=== PATIENT | female | born 1955 | race Hispanic/Latino ===

== ENCOUNTER 2017-01-29 03:36 | Emergency (ER) | payer BC ==
[2017-01-29 04:01] LABS: Bilirubin Negative (Negative); Blood, Urine Trace (Negative); Clarity Slightly Cloudy (Clear); Glucose, Urine (Dipstick) Negative (Negative); Leukocyte Small (Negative); Nitrite Negative (Negative); Protein, Urine (Dipstick) Negative (Neg-Trace); Urobilinogen 0.2 mg/dL (0.2-1.0); pH, Urine 5.5 (5.0-9.0)
[2017-01-29 04:08] LABS: Bacteria/HPF 2+ HPF (None Seen); Transitional Epithelial 0-3 HPF (0-3)
[2017-01-29] MEDS ORDERED: Ketorolac Tromethamine 30 MG/ML VIAL ONE (04:18)
[2017-01-29] MEDS ORDERED: Ondansetron HCl/PF 4 MG/2 ML Vial ONE (04:18)
[2017-01-29 04:28] LABS: #Basophils 0.1 thou/uL (0.0-0.2); #Eosinphils 0.1 thou/uL (0.0-0.7); #Lymphocytes 2.2 thou/uL (1.20-3.40); #Monocytes 0.8 thou/uL (0.11-0.59); #Neutrophils 5.2 thou/uL (1.40-6.50); %Basophils 1.3 % (0.0-1.0); %Eosinophils 1.6 % (0.0-10.0); %Monocytes 9.7 % (0.0-10.0); %Neutrophils 61.5 % (42.0-75.0); Mean Corpuscular HGB CONC 33.1 g/dL (32.0-36.0); Mean Corpuscular Hemoglobin 30.4 pg (27.0-31.0); Mean Corpuscular Volume 91.6 fl (81.0-99.0); Mean Platelet Volume 6.9 fL (7.4-10.4); Platelet Count 346 thou/uL (130-400); Red Blood Cell (RBC) Count 4.61 mill/uL (4.20-5.40); White Blood Cell (WBC) Count 8.4 thou/uL (4.8-10.8)
[2017-01-29 04:44] LABS: ALT (SGPT) 16 U/L (8-55); AST (SGOT) 18 U/L (5-34); Alkaline Phosphatase 86 U/L (40-150); Anion Gap 16 mmol/L (10-20); BUN (Urea Nitrogen) 16 mg/dL (9.8-20.1); Bilirubin, Total 0.3 mg/dL (0.2-1.2); Calc. Creatinine Clearance 0 mL/min (70-130); Calcium 9.4 mg/dL (7.8-10.44); Carbon Dioxide 24 mmol/L (23-31); Chloride 104 mmol/L (98-107); Estimated GFR-MDRD 82; Glucose 135 mg/dL (80-115); Sodium 140 mmol/L (136-145)
[2017-01-29] MEDS ORDERED: Morphine 4 MG/ML Carpuject ONE (04:59)
[2017-01-29] MEDS ORDERED: methylPREDNISolone Sod Succ/PF 125 MG/2 ML VIAL ONE (05:06)
[2017-01-29] MEDS ORDERED: Sulfameth/Trimethoprim DS 800-160mg TAB ONE (05:06)
--- NOTE | 2017-01-29 08:07 | CT ---
PRELIMINARY REPORT/[facility]/EMERGENCY AFTER HOURS PROCEDURE: EXAM: CT Abdomen and Pelvis Without Intravenous Contrast CLINICAL HISTORY: 61 years old, female; Pain; Abdominal pain; Flank; Right lower quadrant (rlq); Patient HX: Pt present s to the er for right flank pain; Radiating to right lower quad since 2am. TECHNIQUE: Axial computed tomography images of the abdomen and pelvis without intravenous contrast. All CT scans at this facility use one or more dose reduction techniques, viz.: automated exposure control; ma/kV adjustment per patient size (including targeted exams where dose is matched to indication; i.e. head) ; or iterative reconstruction technique. Coronal reformatted images were created and reviewed. COMPARISON: No relevant prior studies available. FINDINGS: The lung bases are clear. Right kidney: No intrarenal calculus. Mild perinephric stranding. Moderate right hydronephrosis and hydroureter. There is a 4-5 mm distal right ureteral calculus, at the UVJ. Left kidney: Small left intrarenal calculus. No hydronephrosis or visible mass. No hydroureter or visible ureteral calculus. No definite gallbladder abnormality by CT. No biliary tree dilation. Unremarkable appearance of the liver, spleen, adrenal glands, and pancreas. No free air, ascites, or bowel distention. No evidence for abdominal aortic aneurysm. No retroperitoneal adenopathy. CT pelvis: Urinary bladder appears essentially unremarkable by CT. The appendix is not identified with certainty, however no pericecal inflammatory changes are seen. There are no CT findings to strongly suggest diverticulitis. No abnormal mass or fluid collection in the pelvis. IMPRESSION: There is a 4-5 mm distal right ureteral calculus, at the UVJ. Moderate right hydronephrosis and hydroureter. Small left intrarenal calculus. No evidence for appendicitis or diverticulitis. Other findings discussed above. Thank you for allowing us to participate in the care of your patient. Dictated and Authenticated by: Rajeev Hartley MD 01/29/2017 4:54 AM Central Time ([place] & [place]) FINAL REPORT CT ABDOMEN AND PELVIS WITHOUT CONTRAST: Date: 01/29/[address] of the abdomen and pelvis was performed without IV contrast for evaluation of right flank a nd lower quadrant pain. Axial slices were acquired and coronal reconstructions were done. FINDINGS: There is a 6-7 mm calculus in the distal right ureter at the UVJ causing mild to moderate right hydro nephrosis and hydroureter. There is a nonobstructing calculus seen in the left kidney. Lung bases are clear. The liver, spleen, pancreas, gallbladder, adrenal glands, and abdominal aorta w ere unremarkable. There are some scattered large calcifications in the abdomen that may be lymph node s, but in any case appear benign. The bowel is nondistended. There are no inflammatory changes around bowel to suggest appendicitis or diverticulitis. A CT of the pelvis shows no pelvic mass, inflammatory change, or free fluid. IMPRESSION: 1. 6-7 mm distal right ureteral calculus causing mild to moderate right hydronephrosis. 2. Tiny nonobstructing calculus in the left kidney. Report in agreement with preliminary reading by Chantel. POS: HOME
== END 2017-01-29 05:43 | disposition home or self-care (01) ==
LOC: BURERS 03:36
DX: N13.2 Hydronephrosis with renal and ureteral calculous obstruction (principal); M19.90 Unspecified osteoarthritis, unspecified site; I10 Essential (primary) hypertension
CPT/HCPCS: 74176; 80053; 81003; 81015; 85025; 96374; 96375; J1885; J2270; J2405; J2930

== ENCOUNTER 2021-11-04 08:37 | Emergency (ER) | payer MEDICARE ==
[2021-11-04] MEDS ORDERED: Cyclobenzaprine 10 MG TAB ONE (09:25)
== END 2021-11-04 09:38 | disposition home or self-care (01) ==
LOC: BURERS 08:37
DX: M62.838 Other muscle spasm (principal); R00.0 Tachycardia, unspecified; I10 Essential (primary) hypertension
CPT/HCPCS: 99283